=== PATIENT | female | born 1955 | race Caucasian/White ===

== ENCOUNTER → 2017-06-20 | Outpatient (CLI) | payer OTHER ==
[~2017-06-20] MED LIST: ASPIRIN 32325 MG/TA1 PO; CELEBREX 200MG200 MG PO; FERROUS SU325 MG/TAB PO; FOLIC ACID 40400 MCG PO; NORCO 325 MG-7.1 TAB PO; OSCAL 500 TAB500 MG PO; PENTASA500 MG PO; ULTRAM 50MG TAB50 MG PO; VITAMIN C500 MG PO
[2017-06-20 17:21] LABS: SYNOVIAL FL. MONONUCLEAR 24.8 % (0-75); SYNOVIAL FL. POLYMORPHONUCLEAR 75.2 % (0-25); SYNOVIAL FLUID WBC 2440 /mm3 (200-600)
[2017-06-20 20:18] LABS: SYNOVIAL FLUID APPEARANCE TURBID; SYNOVIAL FLUID COLOR RED
[2017-06-21 10:44] LABS: SYN APPEARANCE Bloody (()); SYN COLOR Red (())
== END ==
LOC: ZCOL.LAB 16:52
PROVIDERS: Orthopaedic Surgery
DX: M25.561 Pain in right knee (principal)

== ENCOUNTER → 2017-08-01 | Outpatient (CLI) | payer OTHER ==
[~2017-08-01] VITALS: Ht 165.1 cm; Wt 63.2 kg
== END ==
LOC: COL.RAD 12:00
DX: M71.21 Synovial cyst of popliteal space [Baker], right knee (principal)

== ENCOUNTER → 2018-03-06 | Outpatient (REF) ==
[2018-03-06 17:13] LABS: THYROID STIMULATING HORMONE 5.7 uIU/mL (0.465-4.680)
== END ==
LOC: ZLAB.WCH 16:10
PROVIDERS: Nurse Practitioner Family
DX: Z01.89 Encounter for other specified special examinations (principal)

== ENCOUNTER 2019-07-15 07:30 | Day surgery (SDC) | payer OTHER ==
[~2019-07-15] VITALS: Ht 165.1 cm; Wt 73.7 kg
[2019-07-15 07:53] VITALS: BP 142/92; PULSE 70; TEMP 98.4
[2019-07-15] MEDS ORDERED: PREMARIN VAG42.5 GM VG (08:32)
[2019-07-15 09:36] VITALS: BP 123/81; PULSE 60
--- NOTE | 2019-07-15 09:36 | NUR ---
PATIENT TO BAY 3 PER CART ACCOMPANIED BY ENDO NURSE. PATIENT AMBULATES FROM CART TO CHAIR WITH 1 ASSIST. MONITORS APPLIED. VSS. AT BEDSIDE. REPORT RECEIVED.
[2019-07-15 09:45] VITALS: BP 132/85; PULSE 58
--- NOTE | 2019-07-15 09:45 | NUR ---
DR VELÁSQUEZ IN ROOM AND SPEAKS WITH PATIENT AND . VSS. PATIENT GIVEN COFFEE AND DMITRY CRACKERS. PATIENT DENIES DISCOMFORT AND NAUSEA.
[2019-07-15 10:00] VITALS: BP 148/96; PULSE 52
[2019-07-15 10:15] VITALS: BP 144/81; PULSE 54
[2019-07-15 10:25] VITALS: TEMP 98.3
--- NOTE | 2019-07-15 10:25 | NUR ---
VSS PATIENT VOIDS WITHOUT PROBLEMS. PATIENT DENIES DISCOMFORT AND NAUSEA. DISCHARGE INSTRUCTION PACKET GIVEN TO PATIENT. VERBAL INFORMATION GIVEN. QUESTIONS ANSWERED PATIENT AND VOICED UNDERSTANDING. IV DC'D WITH CATHETER TIP INTACT. PRESSURE APPLIED AND BANDAGE. PATIENT TAKEN BY WHEELCHAIR TO PRIVATE VECHILE.
--- NOTE | 2019-07-15 10:34 | NUR ---
VITAL SIGNS - BLOOD PRESSURE ELEVATED BACK TO BASELINE. PATIENT EATS CRACKERS AND DRINKS FLUIDS WITHOUT PROBLEMS. UP TO BATHROOM WITH STEADY GAIT.
== END 2019-07-15 10:25 | disposition home or self-care (01) ==
LOC: SDCO 07:30
DX: K52.9 Noninfective gastroenteritis and colitis, unspecified (principal); K51.90 Ulcerative colitis, unspecified, without complications; Z80.0 Family history of malignant neoplasm of digestive organs; K64.8 Other hemorrhoids; Z87.891 Personal history of nicotine dependence; M19.90 Unspecified osteoarthritis, unspecified site; Z96.643 Presence of artificial hip joint, bilateral; Z90.49 Acquired absence of other specified parts of digestive tract
CPT/HCPCS: J2704; J7120